=== PATIENT | female | born 1950 | race Caucasian/White ===

== ENCOUNTER → 2017-04-08 17:47 | Outpatient (CLI) | payer OTHER | END | disposition home or self-care (01) | LOC: D.RAD 17:47 | DX: M79.604 Pain in right leg (principal) ==

== ENCOUNTER → 2018-04-08 09:38 | Outpatient (CLI) | payer MEDICARE, BC | END | disposition home or self-care (01) | LOC: D.CT 09:38 | DX: N02.9 Recurrent and persistent hematuria with unspecified morphologic changes (principal) ==